=== PATIENT | female | born 1950 | race Caucasian/White ===

== ENCOUNTER 2020-10-04 12:12 | Day surgery (SDC) | payer MEDICARE, MEDICAID, SELFPAY ==
[2020-10-04] MEDS: SODIUM CHLORIDE 0.9% 1,000 ML 100 ML IV (12:40)
[2020-10-04 12:44] VITALS: BP 177/82; PULSE 77; RESP 22; TEMP 36.5; O2SAT 97; BMI 26.5
--- NOTE | 2020-10-04 13:56 | SUR.PREOP ---
pt had missing covid test and had not held xarelto. covid test per caregiver was done at [facility] 10/02/20 and was to be faxed. post op instructions from primary MD did not say to hold blood thinners so patient had only held am meds today. pt has power of [place] attorney for healthcare but it is that has dementia and macular degeneration per caregiver. family is all in [place] per caregiver. procedure canceled per dr johnson. Patient and caregiver instructed to follow up with primary MD and [facility] for next steps
== END 2020-10-04 13:50 | disposition home or self-care (01) ==
LOC: ENDO 12:19
PROVIDERS: PCP Family Medicine; Referring Provider Internal Medicine Gastroenterology; Visit Provider Internal Medicine Gastroenterology
PROC: 0DJ08ZZ Inspection of Upper Intestinal Tract, Via Natural or Artificial Opening Endoscopic (ICD-10-PCS; CPT 43235; principal; 2020-10-04 13:00)
DX: Z53.09 Procedure and treatment not carried out because of other contraindication (principal)
CPT/HCPCS: 43235

== ENCOUNTER → 2020-10-25 13:37 | Outpatient (CLI) | payer MEDICARE, MEDICAID, SELFPAY ==
[2020-10-25 15:34] LABS: COVID19 -Nasal RAPID Negative (Negative)
== END ==
PROVIDERS: PCP Family Medicine; Visit Provider Family Medicine
DX: Z01.812 Encounter for preprocedural laboratory examination (principal); Z20.822 Contact with and (suspected) exposure to COVID-19
CPT/HCPCS: 87635; C9803

== ENCOUNTER → 2020-10-26 11:16 | Outpatient (CLI) | payer MEDICARE, MEDICAID, SELFPAY ==
--- NOTE | 2020-10-26 | DI.RAD.S_ITS ---
PROCEDURE: FL BARIUM SWALLOW W SPEECH INDICATIONS: Dysphagia, unspecified COMPARISON: None. TECHNIQUE: Examination was conducted in conjunction with speech pathology per standard protocol. In the lateral projection, filming was performed of the patient swallowing. AP projection filming may also be performed with patient swallowing. COMPARISON: FINDINGS: Function: The oral preparatory phase appears normal, with proper containment. The subsequent oral propulsive phase, pharyngeal phase, and esophageal phase of swallowing also appear normal with all proffered substances. No laryngotracheal penetration or aspiration. No pathologic vallecular pooling. Morphology: No cricopharyngeal bar is identified. No cervical esophageal webs. No Zenker's diverticulum. No strictures. IMPRESSION: Unremarkable examination. Dictated by: Nicola Farley M.D. on 10/26/2020 at 15:38 Approved by: Nicola Farley M.D. on 10/26/2020 at 15:39
--- NOTE | 2020-10-27 15:53 | ST.SWALLOW ---
Visit Care Team Role Provider Type Maggie Porter DO Attending Provider Physician Primary Care Provider Referring Provider Specialty: Internal Medicine Address: [address] [place] [address], [facility] [place], [address] Email: Modified Barium Swallow Study SOFTWARE TESTER Clinical Instructor Line Start: 10/26/20 16:50 Freq: Status: Active Protocol: Document 10/27/20 14:22 LNK (Rec: 10/27/20 14:22 LNK [id number]) Clinical Instructor Signature Clinical Instructor Clinical Instructor Yes SOFTWARE TESTER Modified Barium Swallow Study Start: 10/26/20 16:50 Freq: Status: Active Protocol: Document 10/26/20 16:51 HM (Rec: 10/26/20 17:05 HM [id number]) Modified Barium Swallow Study Total Time Visit Start Time 11:30 Visit Stop Time 12:00 Total Visit Minutes 30 Visit Information Visit Number 1 Insurance Information Medicare Referral Referring Physician Maggie Porter Reason for Referral Dysphagia- unspecified Setting Setting Outpatient Care Patient Information Identification Type Name,Date of Patient History Pt is a 69-year-old female who was referred for a Modified Barium Swallow Study (MBSS) in order to rule out oropharyngeal vs. esophageal dysphagia. Per medical record review and caregiver report, she has a history of fatty liver disease, a moderately sized hiatal hernia, and a CVA 5 years prior. Additionally, she is diagnosed with COPD. Her caregiver has noted a recent loss of appetite and an increase in coughing while eating. Pt is being seen by a speech therapist in outpatient therapy in [place], [place], but no reports were available to review at this time. Subjective Observations Pt was accompanied by her caregiver, Breana. Pt exhibits right sided paresis with minimal strength and movement of the entire right side of her body. She required maximum support and nurse assist to move from her wheelchair to the chair as she is non- ambulatory. Pt was agreeable and pleasant, but did appear confused at times and had difficulty following complex directions. Patient Positioning Position View Lateral Imaging Lateral View Textures Administered Trials Presented Thin Liquid via Spoon,Thin Liquid via Cup,Pudding Thick Liquid via Spoon,Regular Textures,Barium Tablet Oral Phase Source: MBSIMP (TM) (C) Bolus Specific Scoring Grid Lip Closure No Impairment (WNL) Tongue Control During Bolus Hold Minimal Impairment Bolus Prep/Mastication WFL Bolus Transport/Lingual Motion Minimal Impairment A/P Lingual Propulsion Delay Yes: mild incoordination Oral Residue Minimal Impairment Residue Clearing WFL Nasal Regurgitation No Additional Oral Phase Observations An oral mechanism evaluation revealed pt has upper dentures , and missing lower molars. Tongue weakness noted during lateralization to the right. Right-sided velum weakness observed as well, which is consistent with her right- sided paresis. All other structures and function appeared to be WNL. During oral trials, there was a slight delay with incoordination of lingual propulsion, but this did not significantly impact the posterior movement of the bolus. Trace to minimal amounts of oral residue were present but pt's ability to clear was WFL. Pharyngeal Phase Source: MBSIMP (TM) (C) Bolus Specific Scoring Grid Delayed Initiation of Pharyngeal Swallow Yes Number of Seconds Delayed (seconds) 3-4 seconds Soft Palate Elevation No Impairment (WNL) Tongue Base Strength/Range of Motion Minimal Impairment Residue Along the Tongue Base Yes: Trace amounts Clearance of Residue Along Tongue Base WFL Laryngeal Elevation WFL Anterior Hyoid Movement WFL Epiglottic Range of Motion Minimal Impairment Vallecular Residue Yes: Minimal amounts Clearance of Vallecular Residue WFL Laryngeal Vestibular Closure Minimal Impairment Pharyngeal Stripping Wave WFL Pharyngeal Contraction WFL Posterior Pharyngeal Wall Residue Yes: Trace amounts Clearance of Posterior Pharyngeal Wall WFL Residue Upper Esophageal Sphincter Opening No Impairment (WNL) Residue in the Pyriform Sinuses No Clearance of Residue in the Pyriform No Impairment (WNL) Sinuses Esophageal Clearance Upright Position WFL Pharyngoesophageal Backflow Observed No Additional Pharyngeal Phase Observations This MBSS was viewed in a [id number] manner and findings are reported as follows. During all thin liquid trials, the swallow initiation was significantly delayed with the bolus head below the pyriform sinuses before the swallow triggered. Epiglottic movement was WFL for all trials except for thin liquid cup sips where there was a delayed, albeit complete , epiglottic inversion. Laryngeal vestibular closure was minimally impaired as seen by air present during the height of the swallow, and flash penetration x1 during the sequential swallows. The barium contrast immediately cleared. No coughing or aspiration occurred during this evaluation. Osteophytes observed on C-3, C-4, and C-5. These did not appear to interrupt the bolus flow or pharyngeal stripping wave. The UES opened appropriately to allow the bolus to empty completely into the esophagus. A/P View Clinical Impressions Dysphagia Type Mild oropharyngeal dysphagia Findings Overall, pt's swallow is WFL for her age and circumstance. Flash penetration into the layrngeal vestibule x1 indicates that during multiple sequential swallows of thin liquid, the pt may be at risk for aspiration. It is recommended that the pt takes single sips at a slow rate in order to mitigate the aspiration risk. Due to the pt 's current level of independence and suspected cognitive deficits, additional compensatory strategies will be recommended below. Patient Appropriate for Therapy No: Minimal impairment- compensatory strategies warranted. Recommendations Diet Liquids Order Thin Diet Order Regular Medication Recommendation As Tolerated Additional Dietary Needs Single Sips Aspiration Precautions Recommended Precautions Upright at 90 Degrees,Small Bites/Sips,Left Head Turn Treatment Plan Therapy Recommendations Compensatory Strategy Education Additional Therapy Recommendations Continue with speech therapist in [place], [place]. Compensatory Strategies Recommendations Sitting Upright (90 deg),Turn Head Left,Double Swallow,Small Bites and Sips Short Term Goals With reminders and caregiver cues, pt will utilize compensatory strategies (e.g., one sip at a time, turn head to left) in order to reduce risk of aspiration and maintain a least restrictive diet. Additional Recommendations/Comments Due to right-sided weakness of her entire body, turning her head to the left during a swallow may aid the laryngeal musculature in closing her vocal folds (airway protection ) during the swallow.
== END ==
PROVIDERS: PCP Student in an Organized Health Care Education/Training Program; Referring Provider Student in an Organized Health Care Education/Training Program; Visit Provider Student in an Organized Health Care Education/Training Program
DX: R13.10 Dysphagia, unspecified (principal)
CPT/HCPCS: 74230; 92611

== ENCOUNTER → 2020-10-30 13:21 | Outpatient (CLI) | payer MEDICARE, MEDICAID, SELFPAY ==
[2020-10-30 13:52] LABS: COVID19 -Nasal RAPID Negative (Negative)
== END ==
PROVIDERS: PCP Student in an Organized Health Care Education/Training Program; Referring Provider Student in an Organized Health Care Education/Training Program; Visit Provider Student in an Organized Health Care Education/Training Program
DX: Z20.822 Contact with and (suspected) exposure to COVID-19 (principal)
CPT/HCPCS: 87635

== ENCOUNTER 2020-11-01 09:48 | Day surgery (SDC) | payer MEDICARE, MEDICAID, SELFPAY ==
[2020-11-01] VITALS (11 sets, daily range): BP systolic 162–207; BP diastolic 60–84; PULSE 76–86; RESP 12–18; TEMP 36.2–36.7; O2SAT 91–99; BMI 27.4
[2020-11-01] MEDS: LACTATED RINGERS 1,000 ML 200 ML IV (10:34)
--- NOTE | 2020-11-01 11:43 | PM.HP.1 ---
History of Present Illness History of Present Illness Chief complaint: EGD W/POSS BX Patient History Medical History (Updated 10/04/20 @ 10:21 by Taya Ramachandran, RN) Atherosclerosis Chronic pain syndrome COPD (chronic obstructive pulmonary disease) CVA (cerebral vascular accident) Diabetes Hiatal hernia HTN (hypertension) Hyperlipidemia Neuropathy Urinary incontinence Surgical History (Updated 10/04/20 @ 10:21 by Taya Ramachandran RN) H/O cataract extraction Family & Social History Social History: household members spouse Tobacco & Substance use: Tobacco type cannabis/marijuana Smoking Status Former smoker alcohol intake never Substance Use Type marijuana Meds Home Medications and Allergies Home Medications Medication Instructions Recorded Confirmed Type Vitamin D2 50 mcg PO DAILY 10/04/20 11/01/20 History Xarelto 20 mg PO DAILY 10/04/20 11/01/20 History albuterol 2 puff INHALATION QID 10/04/20 11/01/20 History albuterol sulfate 2.5 mg INHALATION PRN PRN 10/04/20 11/01/20 History amlodipine 10 mg PO DAILY 10/04/20 11/01/20 History atorvastatin 20 mg PO DAILY 10/04/20 11/01/20 History fexofenadine 180 mg PO DAILY 10/04/20 11/01/20 History fluticasone furoate-vilanterol 2 puff INHALATION DAILY 10/04/20 11/01/20 History gabapentin 400 mg PO QAM 10/04/20 11/01/20 History gabapentin 800 mg PO QPM 10/04/20 11/01/20 History losartan 50 mg PO BID 10/04/20 11/01/20 History metformin 1,000 mg PO BID 10/04/20 11/01/20 History omeprazole 20 mg PO DAILY 10/04/20 11/01/20 History sertraline 25 mg PO DAILY 10/04/20 11/01/20 History verapamil 180 mg PO DAILY 10/04/20 11/01/20 History Allergies Allergy/AdvReac Type Severity Reaction Status Date / Time No Known Drug Allergies Allergy Verified 10/04/20 12:40 Review of Systems Review of Systems ROS: Yes All systems reviewed with the patient and are negative except as otherwise documented Exam Vital Signs (past 8 hours): - 11/01/20 10:13 11/01/20 10:29 Temperature 98.0 F Pulse Rate 76 77 Respiratory Rate 18 Blood Pressure 207/84 H 189/82 H Pulse Oximetry 99 Oxygen Delivery Method Room Air Oxygen Flow Rate 0 Narrative Exam Narrative: Awake alert and oriented x3, pupils equal round reactive to light, oropharynx clear, heart regular rate and rhythm, lungs clear to auscultation bilaterally, abdomen nontender and nondistended, extremities without edema, no gross neurologic deficits noted Assessment & Plan Assessment & Plan narrative: Abdominal pain, dysphagia, loss of appetite for EGD today COVID-19 COVID-19 status: Negative
[2020-11-01] MEDS: fentaNYL 250 MCG/5 ML INJ IV (11:50)
[2020-11-01] MEDS: MIDAZOLAM 5 MG/5 ML VIAL IV (11:51)
--- NOTE | 2020-11-01 11:57 | PM.OP.ENDO ---
Operative Date/Time/Diagnoses Date of procedure: 11/01/20 Procedure & Clinicians Study performed: Diagnostic EGD Moderate conscious sedation was administered by the endoscopy nurse and supervised by the endoscopist. The following parameters were monitored: Oxygen saturation, heart rate, blood pressure, and response to care. 2.5 mg of midazolam and 50 mg of fentanyl given Same procedure as scheduled: Yes Indications: Pharyngoesophageal dysphagia, abdominal pain, loss of appetite Procedure Notes Procedure in detail: Prior to the procedure, history and physical was performed, and patient medications and allergies were reviewed. Preprocedure nursing history and assessment was reviewed. Patient identification and proposed procedure were verified by the physician and nurse in the procedure room. The physical status of the patient was reassessed after the procedure. After informed consent was obtained including risks, benefits, and alternatives, the scope was passed under direct vision. Throughout the procedure, the patient's blood pressure, pulse, and oxygen saturations were monitored continuously. The upper endoscope was introduced through the mouth and advanced to the 2nd portion of the duodenum. Retroflexion was performed in the stomach. The patient tolerated the procedure well. The upper and mid esophagus were normal appearing. In the distal esophagus, a mild nonobstructing Schatzki's ring was noted. Regular Z-line located at 35 cm. 3 cm hiatal hernia. Crural pinch located at 38 cm. The remainder of the stomach was normal appearing. The entire examined duodenum was normal appearing Impression: Mild, nonobstructing Schatzki's ring 3 cm hiatal hernia Normal appearing duodenum Sedation minutes: 8 Specimen(s): none sent Complications: other (0 EBL. No complications) Post-procedure Plan for aftercare: Resume home medications. Resume taking Xarelto today as per prescribing providers recommendations. Resume previous diet Follow-up in GI Clinic as previously recommended Patient has a contact number available for emergencies. The signs and symptoms of potential delayed complications were discussed with the patient. Return to normal activities tomorrow. Written discharge instructions were provided to the patient. Discharge home with escort
--- NOTE | 2020-11-01 13:29 | SUR.PHASEII ---
1317 2 people assisted her with dressing (Bubba Beltrán RN and DIRECTOR OF VALUATION). Patient smiling, pleasant. Tolerated ice chips. Returned to caregiver in her own wheelchair.
== END 2020-11-01 13:17 | disposition home or self-care (01) ==
PROVIDERS: PCP Student in an Organized Health Care Education/Training Program; Referring Provider Internal Medicine; Visit Provider Internal Medicine
PROC: 0DJ08ZZ Inspection of Upper Intestinal Tract, Via Natural or Artificial Opening Endoscopic (ICD-10-PCS; CPT 43235; principal; 2020-11-01 10:30)
DX: R13.10 Dysphagia, unspecified (principal); R10.11 Right upper quadrant pain; R63.0 Anorexia; K76.0 Fatty (change of) liver, not elsewhere classified; Z79.01 Long term (current) use of anticoagulants; Z86.73 Personal history of transient ischemic attack (TIA), and cerebral infarction without residual deficits; K44.9 Diaphragmatic hernia without obstruction or gangrene; K22.2 Esophageal obstruction
CPT/HCPCS: 43235; J2250; J3010

== ENCOUNTER → 2021-03-15 09:00 | Outpatient (CLI) | payer MEDICARE, MEDICAID, SELFPAY | PROVIDERS: PCP Student in an Organized Health Care Education/Training Program; Referring Provider Thoracic Surgery (Cardiothoracic Vascular Surgery); Visit Provider Thoracic Surgery (Cardiothoracic Vascular Surgery) | DX: C34.11 Malignant neoplasm of upper lobe, right bronchus or lung (principal); J44.9 Chronic obstructive pulmonary disease, unspecified | CPT/HCPCS: 94010 ==

== ENCOUNTER → 2021-03-15 15:05 | Outpatient (CLI) | payer MEDICARE, MEDICAID, SELFPAY ==
[2021-03-15 16:13] LABS: COVID19 -Nasal RAPID Negative (Negative)
--- NOTE | 2021-03-23 11:15 | PM.PFT.1 ---
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 The FEV1 was measured at 1.27 L which is 55% of predicted. The FEV1/FVC ratio was 70 which is 91% of predicted. The diffusing capacity was measured at 15.36 which is 63% of predicted. No hemoglobin value was provided, so no correction for potential anemia could be made, if appropriate. Interpretation: This study demonstrates moderately severe obstructive lung disease based on reduction FEV1 although FEV1/FVC preserved. No lung volumes were performed nor was bronchodilator administered There is also moderate reduction diffusing capacity suggesting disease at the capillary alveolar level
== END ==
PROVIDERS: PCP Student in an Organized Health Care Education/Training Program; Referring Provider Internal Medicine; Visit Provider Internal Medicine
DX: Z20.822 Contact with and (suspected) exposure to COVID-19 (principal); C34.11 Malignant neoplasm of upper lobe, right bronchus or lung
CPT/HCPCS: 87635; 94010; C9803